=== PATIENT | female | born 2000 | race American Indian/Alaskan Native ===

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

== ENCOUNTER 2019-01-26 11:10 | Emergency (ER) | payer SELFPAY ==
[2019-01-26 11:51] VITALS: BP 122/77
--- NOTE | 2019-01-26 12:12 | Emergency Department Report ---
ED Female HPI - General Chief complaint: Abdominal Pain Stated complaint: CRAMPS Time Seen by Provider: 01/26/19 12:05 Source: patient Mode of arrival: Ambulatory Limitations: No Limitations - History of Present Illness Initial comments: 18 y/o female comes for pelvic cramping after starting her menses yesterday. Patient has taking nothing for her pain. She denies any vaginal discharge no menses. No N/V/D. No urinary frequency or dysuria. Complaint: pelvic pain Onset/Timin -: This morning Location: suprapubic Radiation: non-radiating Severity: moderate Severity scale (0 -10): 3 Quality: cramping Consistency: intermittent Improves with: none Worsens with: none Are you Now?: No Last Menstrual Period: 01/25/19 EDC: 11/01/19 Associated Symptoms: vaginal bleeding - Related Data Sexually active: Yes Previous Rx's Medication Instructions Recorded Last Taken Type Jossy Root [Jossy] 250 mg PO QID #20 capsule 10/12/18 Unknown Rx Nitrofurantoin [place]/M-Cryst 100 mg PO Q12HR #20 capsule 10/12/18 Unknown Rx [Macrobid CAP] Vit-Fe Fumar-FA [ 1 tab PO QDAY #90 tablet 10/12/18 Unknown Rx Vitamin] Pyridoxine [Vitamin B-6 50MG TAB] 50 mg PO DAILY #14 tab 10/12/18 Unknown Rx Promethazine [Phenergan TAB] 25 mg PO Q6HR PRN #20 tab 10/17/18 Unknown Rx Acetaminophen/Pamabrom [Midol 1 each PO Q6H PRN #30 tablet 01/26/19 Unknown Rx Caplet] Allergies Allergy/AdvReac Type Severity Reaction Status Date / Time Penicillins Allergy Angioedema Verified 01/26/19 11:14 ED Review of Systems ROS: Stated complaint: CRAMPS Other details as noted in HPI Comment: All other systems reviewed and negative ED Past Medical Hx - Past Medical History Previous Medical History?: No - Surgical History Past Surgical History?: Yes Additional Surgical History: /EYE SURGERY - Social History Smoking Status: Never Smoker Substance Use Type: None - Medications Home Medications: Home Medications Medication Instructions Recorded Confirmed Last Taken Type Jossy Root [Jossy] 250 mg PO QID #20 capsule 10/12/18 Unknown Rx Nitrofurantoin [place]/M-Cryst 100 mg PO Q12HR #20 capsule 10/12/18 Unknown Rx [Macrobid CAP] Vit-Fe Fumar-FA [ 1 tab PO QDAY #90 tablet 10/12/18 Unknown Rx Vitamin] Pyridoxine [Vitamin B-6 50MG TAB] 50 mg PO DAILY #14 tab 10/12/18 Unknown Rx Promethazine [Phenergan TAB] 25 mg PO Q6HR PRN #20 tab 10/17/18 Unknown Rx Acetaminophen/Pamabrom [Midol 1 each PO Q6H PRN #30 tablet 01/26/19 Unknown Rx Caplet] ED Physical Exam - General Limitations: No Limitations General appearance: alert, in no apparent distress - Head Head exam: Present: atraumatic, normocephalic - Eye Eye exam: Present: normal appearance - ENT ENT exam: Present: mucous membranes moist - Neck Neck exam: Present: normal inspection, full ROM - GI/Abdominal GI/Abdominal exam: Present: soft, normal bowel sounds. Absent: distended, tenderness, guarding, rebound, rigid - Back Exam Back exam: Present: normal inspection - Neurological Exam Neurological exam: Present: alert, oriented X3, normal gait - Psychiatric Psychiatric exam: Present: normal affect, normal mood - Skin Skin exam: Present: warm, dry, intact, normal color. Absent: rash ED Course Vital Signs 01/26/19 11:48 Temperature 97.9 F Pulse Rate 77 Respiratory 18 Rate Blood Pressure 122/77 [Right] O2 Sat by Pulse 100 Oximetry ED Medical Decision Making - Medical Decision Making 18 y/o female comes for pelvic cramping after starting her menses yesterday. Patient has taking nothing for her pain. She denies any vaginal discharge no menses. No N/V/D. No urinary frequency or dysuria. Recommend Midol or Pamperin. Critical care attestation.: If time is entered above; I have spent that time in minutes in the direct care of this critically ill patient, excluding procedure time. ED Disposition Clinical Impression: Moderate cramps with menses Disposition: - TO HOME OR SELFCARE Is pt being admited?: No Does the pt Need Aspirin: No Condition: Stable Instructions: Abdominal Pain (ED) Additional Instructions: Take medication as prescribed. Follow up with you Primary care provider. Prescriptions: Acetaminophen/Pamabrom [Midol Caplet] 1 each PO Q6H PRN #30 tablet PRN Reason: Pain , Severe (7-10) Referrals: JIL CASTANON MD [Primary Care Provider] - 3-5 Days Forms: Work/School Release Form(ED)
== END 2019-01-26 12:28 | disposition home or self-care (01) ==
LOC: ED 11:10
DX: N94.89 Other specified conditions associated with female genital organs and menstrual cycle (principal); Z88.0 Allergy status to penicillin; Z79.899 Other long term (current) drug therapy
CPT/HCPCS: 99282

== ENCOUNTER 2019-03-01 05:12 | Emergency (ER) | payer SELFPAY ==
[2019-03-01 05:53] LABS: Basophils % (Auto) 0.4 % (0.0-1.8); Eosinophils # (Auto) 0.1 K/mm3 (0.0-0.4); Eosinophils % (Auto) 1.1 % (0.0-4.3); Hematocrit 37.1 % (30.3-42.9); Hemoglobin 12.8 gm/dl (10.1-14.3); Lymphocytes # (Auto) 1.6 K/mm3 (1.2-5.4); Lymphocytes % (Auto) 19.9 % (13.4-35.0); Mean Corpuscular HGB Conc 35 % (30-34); Mean Corpuscular Volume 90 fl (79-97); Monocytes # (Auto) 0.7 K/mm3 (0.0-0.8); Monocytes % (Auto) 9.1 % (0.0-7.3); Platelet Count 231 K/mm3 (140-440); Red Blood Count 4.14 M/mm3 (3.65-5.03); Red Cell Distribution Width 13.5 % (13.2-15.2)
[2019-03-01 06:10] LABS: Alanine Aminotransferase 6 units/L (7-56); Albumin 4.3 g/dL (3.9-5); BUN/Creatinine Ratio 14; Blood Urea Nitrogen 10 mg/dL (7-17); Calcium 9.1 mg/dL (8.4-10.2); Hemolysis Index 0
--- NOTE | 2019-03-01 07:13 | Emergency Department Report ---
ED Female HPI - General Chief complaint: Abdominal Pain Stated complaint: ABDOMINAL CRAMPS Time Seen by Provider: 03/01/19 07:06 Source: patient Mode of arrival: Ambulatory Limitations: No Limitations - History of Present Illness Initial comments: Patient is a 18-year-old female who presents to emergency room with complaints of pelvic cramping for one week. Associated white vaginal discharge. Denies any nausea, vomiting, fever, chills, vaginal itching, vaginal irritation, dysuria, any other symptoms. States she is sexually active and states she uses protection. States her last menstrual cycle was last week. She denies any past medical history. She states she has an allergy to penicillin. She does not have an GLUE MOUNTER OPERATOR. - Related Data Previous Rx's Medication Instructions Recorded Last Taken Type Jossy Root [Jsosy] 250 mg PO QID #20 capsule 10/12/18 Unknown Rx Nitrofurantoin [place]/M-Cryst 100 mg PO Q12HR #20 capsule 10/12/18 Unknown Rx [Macrobid CAP] Vit-Fe Fumar-FA [ 1 tab PO QDAY #90 tablet 10/12/18 Unknown Rx Vitamin] Pyridoxine [Vitamin B-6 50MG TAB] 50 mg PO DAILY #14 tab 10/12/18 Unknown Rx Promethazine [Phenergan TAB] 25 mg PO Q6HR PRN #20 tab 10/17/18 Unknown Rx Acetaminophen/Pamabrom [Midol 1 each PO Q6H PRN #30 tablet 01/26/19 Unknown Rx Caplet] metroNIDAZOLE [Flagyl] 500 mg PO BID 7 Days #14 tab 03/01/19 Unknown Rx Allergies Allergy/AdvReac Type Severity Reaction Status Date / Time Penicillins Allergy Angioedema Verified 01/26/19 11:14 ED Review of Systems ROS: Stated complaint: ABDOMINAL CRAMPS Other details as noted in HPI Comment: All other systems reviewed and negative ED Past Medical Hx - Past Medical History Previous Medical History?: No - Surgical History Past Surgical History?: No Additional Surgical History: /EYE SURGERY - Social History Smoking Status: Never Smoker Substance Use Type: Alcohol - Medications Home Medications: Home Medications Medication Instructions Recorded Confirmed Last Taken Type Jossy Root [Jossy] 250 mg PO QID #20 capsule 10/12/18 Unknown Rx Nitrofurantoin [place]/M-Cryst 100 mg PO Q12HR #20 capsule 10/12/18 Unknown Rx [Macrobid CAP] Vit-Fe Fumar-FA [ 1 tab PO QDAY #90 tablet 10/12/18 Unknown Rx Vitamin] Pyridoxine [Vitamin B-6 50MG TAB] 50 mg PO DAILY #14 tab 10/12/18 Unknown Rx Promethazine [Phenergan TAB] 25 mg PO Q6HR PRN #20 tab 10/17/18 Unknown Rx Acetaminophen/Pamabrom [Midol 1 each PO Q6H PRN #30 tablet 01/26/19 Unknown Rx Caplet] metroNIDAZOLE [Flagyl] 500 mg PO BID 7 Days #14 tab 03/01/19 Unknown Rx ED Physical Exam - General Limitations: No Limitations General appearance: alert, in no apparent distress - Head Head exam: Present: atraumatic, normocephalic - Eye Eye exam: Present: normal appearance - ENT ENT exam: Present: mucous membranes moist - Respiratory Respiratory exam: Present: normal lung sounds bilaterally. Absent: respiratory distress, wheezes, rales, rhonchi, stridor, chest wall tenderness, accessory muscle use, decreased breath sounds, prolonged expiratory - Cardiovascular Cardiovascular Exam: Present: regular rate, normal rhythm, normal heart sounds. Absent: systolic murmur, diastolic murmur, rubs, gallop - GI/Abdominal GI/Abdominal exam: Present: soft, normal bowel sounds. Absent: distended, tenderness, guarding, rebound, rigid - External exam: Present: normal external exam. Absent: erythema, swelling, lesions, lacerations, ecchymosis, bleeding Speculum exam: Present: vaginal discharge (small amount white vaginal discharge ), other (cable inspector: BARBIE Pickard). Absent: erythema, cervical discharge, vaginal bleeding, foreign body, tissue, laceration Bi-manual exam: Present: normal bi-manual exam. Absent: cervical motion tendernes, adnexal tenderness, adnexal mass - Neurological Exam Neurological exam: Present: alert, oriented X3 - Psychiatric Psychiatric exam: Present: normal affect, normal mood - Skin Skin exam: Present: warm, dry, intact ED Course Vital Signs 03/01/19 03/01/19 05:14 08:38 Temperature 98.3 F 98.4 F Pulse Rate 104 H 86 Respiratory 18 18 Rate Blood Pressure 115/48 Blood Pressure 103/62 [Right] O2 Sat by Pulse 99 100 Oximetry ED Medical Decision Making - Lab Data Result diagrams: 03/01/19 05:34 03/01/19 05:34 Lab Results 03/01/19 03/01/19 03/01/19 Range/Units 05:34 05:34 05:34 WBC 8.0 (4.5-11.0) K/mm3 RBC 4.14 (3.65-5.03) M/mm3 Hgb 12.8 (10.1-14.3) gm/dl Hct 37.1 (30.3-42.9) % MCV 90 (79-97) fl MCH 31 (28-32) pg MCHC 35 H (30-34) % RDW 13.5 (13.2-15.2) % Plt Count 231 (140-440) K/mm3 Lymph % (Auto) 19.9 (13.4-35.0) % Crisp % (Auto) 9.1 H (0.0-7.3) % Eos % (Auto) 1.1 (0.0-4.3) % Baso % (Auto) 0.4 (0.0-1.8) % Lymph # 1.6 (1.2-5.4) K/mm3 Crisp # 0.7 (0.0-0.8) K/mm3 Eos # 0.1 (0.0-0.4) K/mm3 Baso # 0.0 (0.0-0.1) K/mm3 Seg Neutrophils % 69.5 (40.0-70.0) % Seg Neutrophils # 5.5 (1.8-7.7) K/mm3 Sodium 139 (137-145) mmol/L Potassium 3.6 (3.6-5.0) mmol/L Chloride 103.4 (98-107) mmol/L Carbon Dioxide 23 (22-30) mmol/L Anion Gap 16 mmol/L BUN 10 (7-17) mg/dL Creatinine 0.7 (0.7-1.2) mg/dL Estimated GFR > 60 ml/min BUN/Creatinine Ratio 14 % Glucose 111 H (65-100) mg/dL Calcium 9.1 (8.4-10.2) mg/dL Total Bilirubin 0.40 (0.1-1.2) mg/dL AST 12 (5-40) units/L ALT 6 L (7-56) units/L Alkaline Phosphatase 55 (35-129) units/L Total Protein 7.9 (6.3-8.2) g/dL Albumin 4.3 (3.9-5) g/dL Albumin/Globulin Ratio 1.2 % HCG, Qual Negative (Negative) Urine Color (Yellow) Urine Turbidity (Clear) Urine pH (5.0-7.0) Ur Specific Osgood (1.003-1.030) Urine Protein (Negative) mg/dL Urine Glucose (UA) (Negative) mg/dL Urine Ketones (Negative) mg/dL Urine Blood (Negative) Urine Nitrite (Negative) Urine Bilirubin (Negative) Urine Urobilinogen (<2.0) mg/dL Ur Leukocyte Esterase (Negative) Urine WBC (Auto) (0.0-6.0) /HPF Urine RBC (Auto) (0.0-6.0) /HPF U Epithel Cells (Auto) (0-13.0) /HPF Urine Mucus /HPF 03/01/19 Range/Units 07:52 WBC (4.5-11.0) K/mm3 RBC (3.65-5.03) M/mm3 Hgb (10.1-14.3) gm/dl Hct (30.3-42.9) % MCV (79-97) fl MCH (28-32) pg MCHC (30-34) % RDW (13.2-15.2) % Plt Count (140-440) K/mm3 Lymph % (Auto) (13.4-35.0) % Crisp % (Auto) (0.0-7.3) % Eos % (Auto) (0.0-4.3) % Baso % (Auto) (0.0-1.8) % Lymph # (1.2-5.4) K/mm3 Crisp # (0.0-0.8) K/mm3 Eos # (0.0-0.4) K/mm3 Baso # (0.0-0.1) K/mm3 Seg Neutrophils % (40.0-70.0) % Seg Neutrophils # (1.8-7.7) K/mm3 Sodium (137-145) mmol/L Potassium (3.6-5.0) mmol/L Chloride (98-107) mmol/L Carbon Dioxide (22-30) mmol/L Anion Gap mmol/L BUN (7-17) mg/dL Creatinine (0.7-1.2) mg/dL Estimated GFR ml/min BUN/Creatinine Ratio % Glucose (65-100) mg/dL Calcium (8.4-10.2) mg/dL Total Bilirubin (0.1-1.2) mg/dL AST (5-40) units/L ALT (7-56) units/L Alkaline Phosphatase (35-129) units/L Total Protein (6.3-8.2) g/dL Albumin (3.9-5) g/dL Albumin/Globulin Ratio % HCG, Qual (Negative) Urine Color Carlyn (Yellow) Urine Turbidity Slightly-cloudy (Clear) Urine pH 5.0 (5.0-7.0) Ur Specific Osgood 1.034 H (1.003-1.030) Urine Protein 100 mg/dl (Negative) mg/dL Urine Glucose (UA) Neg (Negative) mg/dL Urine Ketones Tr (Negative) mg/dL Urine Blood Neg (Negative) Urine Nitrite Neg (Negative) Urine Bilirubin Neg (Negative) Urine Urobilinogen 2.0 (<2.0) mg/dL Ur Leukocyte Esterase Tr (Negative) Urine WBC (Auto) 6.0 (0.0-6.0) /HPF Urine RBC (Auto) 3.0 (0.0-6.0) /HPF U Epithel Cells (Auto) 4.0 (0-13.0) /HPF Urine Mucus 3+ /HPF - Medical Decision Making Patient is a 18-year-old female who presents to emergency room with complaints of pelvic cramping for one week. Associated white vaginal discharge. Denies any nausea, vomiting, fever, chills, vaginal itching, vaginal irritation, dysuria, any other symptoms. States she is sexually active and states she uses protection. States her last menstrual cycle was last week. She denies any past medical history. She states she has an allergy to penicillin. She does not have an GLUE MOUNTER OPERATOR. VSS. no abd tenderness on exam. pelvic examination with cable inspector, small amount of white vaginal discharge, no CMT, no adnexal tenderness or masses, no clinical signs of PID. labs are normal. UA without UTI. wet prep shows bacteria vaginosis. G/C swab sent, advised pt to go to medical records in 1 week for results of her G/C swab to see if she needed further abx treatment for one of these. pt verbalized understanding. pt given prescription for flagyl for BV. advised pt to please take medication as prescribed. Do not drink alcohol while taking medication. Please go to medical records in 1 week with your drivers license to receive the results of your tests and see if you need further treatment. Please follow-up with an GLUE MOUNTER OPERATOR in the next 2-3 days. please be seen by the health department or GLUE MOUNTER OPERATOR for further STD testing. Please have your partner tested and treated as well. Abstain from sexual intercourse for 10 days. Return to the emergency room for any new or worsening symptoms. - Differential Diagnosis UTI, BV, STD, yeast, vaginitis, PID, , ovarian cyst Critical care attestation.: If time is entered above; I have spent that time in minutes in the direct care of this critically ill patient, excluding procedure time. ED Disposition Clinical Impression: Pelvic cramping, Bacterial vaginosis Disposition: TO HOME OR SELFCARE Is pt being admited?: No Does the pt Need Aspirin: No Condition: Stable Instructions: Bacterial Vaginosis (ED), Sexually Transmitted Diseases (ED), Safe Sex (ED) Additional Instructions: Please take medication as prescribed. Do not drink alcohol while taking medication. Please go to medical records in 1 week with your drivers license to receive the results of your tests and see if you need further treatment. Please follow-up with an GLUE MOUNTER OPERATOR in the next 2-3 days. please be seen by the health department or GLUE MOUNTER OPERATOR for further STD testing. Please have your partner tested and treated as well. Abstain from sexual intercourse for 10 days. Return to the emergency room for any new or worsening symptoms. Prescriptions: metroNIDAZOLE [Flagyl] 500 mg PO BID 7 Days #14 tab Referrals: [facility] [Primary Care Provider] - 2-3 Days CORNELL SYED MD [Staff Physician] - 2-3 Days Forms: STI Treatment and Prevention, Work/School Release Form Time of Disposition: 08:24 Print Language: PRYDEINIG
[2019-03-01 08:09] LABS: Bilirubin,Urine NEG (Negative); Blood,Urine NEG (Negative); Color,Urine Amber (Yellow); Mucus,Urine 3+ /HPF
[2019-03-01 08:39] VITALS: BP 103/62
== END 2019-03-01 08:40 | disposition home or self-care (01) ==
LOC: ED 05:12
DX: N76.0 Acute vaginitis (principal); Z79.899 Other long term (current) drug therapy; Z88.0 Allergy status to penicillin
CPT/HCPCS: 36415; 80053; 81001; 84703; 85025; 87210; 87591

== ENCOUNTER 2019-07-24 10:30 | Emergency (ER) | payer SELFPAY ==
[2019-07-24] MEDS ORDERED: SODIUM CHLORIDE 0.9% 1000 ML 1,000 ML IV ONE (13:30)
[2019-07-24] MEDS ORDERED: METOCLOPRAMIDE 10 MG/2 ML INJ IV ONE (13:31)
[2019-07-24] MEDS ORDERED: diphenhydrAMINE 50 MG/ML VIAL IV ONE (13:31)
[2019-07-24] MEDS ORDERED: LACTATED RINGERS 1,000 ML IV ONE (14:15)
[2019-07-24 14:27] LABS: Alanine Aminotransferase 13 units/L (7-56); Albumin 4.6 g/dL (3.9-5); BUN/Creatinine Ratio 16; Blood Urea Nitrogen 11 mg/dL (7-17); Calcium 9.8 mg/dL (8.4-10.2); Hematocrit 49.4 % (30.3-42.9); Hemoglobin 16.6 gm/dl (10.1-14.3); Hemolysis Index 15; Mean Corpuscular HGB Conc 34 % (30-34); Mean Corpuscular Volume 90 fl (79-97); Platelet Count 199 K/mm3 (140-440); Red Blood Count 5.51 M/mm3 (3.65-5.03); Red Cell Distribution Width 13.7 % (13.2-15.2)
--- NOTE | 2019-07-24 14:54 | Emergency Department Report ---
ED N/V/D HPI - General Chief complaint: Nausea/Vomiting/Diarrhea Stated complaint: VOMIT/CANT HOLD FOOD Time Seen by Provider: 07/24/19 12:54 Source: patient Mode of arrival: Ambulatory Limitations: No Limitations - History of Present Illness Initial comments: 18-year-old -[place] female without significant past medical history presents with complaints of nausea and vomiting x6 days. She denies any fever, abdominal pain, dysuria/hematuria/urinary frequency, hematemesis/coffee-ground emesis, history of GERD, diarrhea/melena/hematochezia/constipation. Patient states she vomits with and without oral intake. She states she has possibly . She also denies any vaginal bleeding, vaginal discharge, or dyspareunia. MD complaint: nausea, vomiting -: Sudden - Related Data Previous Rx's Medication Instructions Recorded Last Taken Type Jossy Root [Jossy] 250 mg PO QID #20 capsule 10/12/18 Unknown Rx Nitrofurantoin Coleman/M-Cryst 100 mg PO Q12HR #20 capsule 10/12/18 Unknown Rx [Macrobid CAP] Vit-Fe Fumar-FA [ 1 tab PO QDAY #90 tablet 10/12/18 Unknown Rx Vitamin] Pyridoxine [Vitamin B-6 50MG TAB] 50 mg PO DAILY #14 tab 10/12/18 Unknown Rx Promethazine [Phenergan TAB] 25 mg PO Q6HR PRN #20 tab 10/17/18 Unknown Rx Acetaminophen/Pamabrom [Midol 1 each PO Q6H PRN #30 tablet 01/26/19 Unknown Rx Caplet] metroNIDAZOLE [Flagyl] 500 mg PO BID 7 Days #14 tab 03/01/19 Unknown Rx Allergies Allergy/AdvReac Type Severity Reaction Status Date / Time Penicillins Allergy Angioedema Verified 01/26/19 11:14 ED Review of Systems ROS: Stated complaint: VOMIT/CANT HOLD FOOD Other details as noted in HPI Constitutional: denies: chills, fever ENT: denies: throat pain Respiratory: denies: cough, shortness of breath Cardiovascular: denies: chest pain Gastrointestinal: nausea, vomiting. denies: abdominal pain, diarrhea, constipation, hematemesis, melena, hematochezia Genitourinary: denies: urgency, dysuria, frequency, hematuria, discharge, abnormal menses, dyspareunia Skin: denies: rash, lesions, change in color Neurological: denies: headache ED Past Medical Hx - Past Medical History Previous Medical History?: No - Surgical History Past Surgical History?: Yes Additional Surgical History: /EYE SURGERY - Social History Smoking Status: Never Smoker Substance Use Type: None - Medications Home Medications: Home Medications Medication Instructions Recorded Confirmed Last Taken Type Jossy Root [Jossy] 250 mg PO QID #20 capsule 10/12/18 Unknown Rx Nitrofurantoin Coleman/M-Cryst 100 mg PO Q12HR #20 capsule 10/12/18 Unknown Rx [Macrobid CAP] Vit-Fe Fumar-FA [ 1 tab PO QDAY #90 tablet 10/12/18 Unknown Rx Vitamin] Pyridoxine [Vitamin B-6 50MG TAB] 50 mg PO DAILY #14 tab 10/12/18 Unknown Rx Promethazine [Phenergan TAB] 25 mg PO Q6HR PRN #20 tab 10/17/18 Unknown Rx Acetaminophen/Pamabrom [Midol 1 each PO Q6H PRN #30 tablet 01/26/19 Unknown Rx Caplet] metroNIDAZOLE [Flagyl] 500 mg PO BID 7 Days #14 tab 03/01/19 Unknown Rx ED Physical Exam - General Limitations: No Limitations General appearance: alert, in no apparent distress - Head Head exam: Present: atraumatic, normocephalic - Eye Eye exam: Present: normal appearance - ENT ENT exam: Present: mucous membranes moist - Neck Neck exam: Present: normal inspection - Respiratory Respiratory exam: Present: normal lung sounds bilaterally. Absent: respiratory distress - Cardiovascular Cardiovascular Exam: Present: regular rate, normal rhythm - GI/Abdominal GI/Abdominal exam: Present: soft, normal bowel sounds. Absent: distended, tenderness, guarding, rebound, rigid - Extremities Exam Extremities exam: Present: normal inspection - Back Exam Back exam: Present: normal inspection - Neurological Exam Neurological exam: Present: alert, oriented X3 - Psychiatric Psychiatric exam: Present: normal affect, normal mood - Skin Skin exam: Present: warm, dry, intact, normal color. Absent: rash, cyanosis, diaphoretic, erythema, ecchymosis ED Course Vital Signs 07/24/19 10:38 Temperature 97.7 F Pulse Rate 91 H Respiratory 20 Rate Blood Pressure 115/73 ED Medical Decision Making - Lab Data Result diagrams: 07/24/19 13:37 03/03/20 13:37 Lab Results 07/24/19 07/24/19 07/24/19 Range/Units 13:37 13:37 13:37 WBC 4.6 (4.5-11.0) K/mm3 RBC 5.51 H (3.65-5.03) M/mm3 Hgb 16.6 H (10.1-14.3) gm/dl Hct 49.4 H (30.3-42.9) % MCV 90 (79-97) fl MCH 30 (28-32) pg MCHC 34 (30-34) % RDW 13.7 (13.2-15.2) % Plt Count 199 (140-440) K/mm3 Lymph % (Auto) Welding Supervisor Coleman % (Auto) Welding Supervisor Eos % (Auto) Welding Supervisor Baso % (Auto) Welding Supervisor Lymph # Welding Supervisor Coleman # Welding Supervisor Eos # Welding Supervisor Baso # Welding Supervisor Seg Neutrophils % Welding Supervisor Seg Neutrophils # Welding Supervisor Sodium 138 (137-145) mmol/L Potassium 3.8 (3.6-5.0) mmol/L Chloride 99.5 (98-107) mmol/L Carbon Dioxide 17 L (22-30) mmol/L Anion Gap 25 mmol/L BUN 11 (7-17) mg/dL Creatinine 0.7 (0.7-1.2) mg/dL Estimated GFR > 60 ml/min BUN/Creatinine Ratio 16 % Glucose 80 (65-100) mg/dL Calcium 9.8 (8.4-10.2) mg/dL Total Bilirubin 0.70 (0.1-1.2) mg/dL AST 15 (5-40) units/L ALT 13 (7-56) units/L Alkaline Phosphatase 60 (35-129) units/L Total Protein 8.5 H (6.3-8.2) g/dL Albumin 4.6 (3.9-5) g/dL Albumin/Globulin Ratio 1.2 % HCG, Qual Positive (Negative) Urine Color (Yellow) Urine Turbidity (Clear) Urine pH (5.0-7.0) Ur Specific [place] (1.003-1.030) Urine Protein (Negative) mg/dL Urine Glucose (UA) (Negative) mg/dL Urine Ketones (Negative) mg/dL Urine Blood (Negative) Urine Nitrite (Negative) Ur Reducing Substances Urine Bilirubin (Negative) Urine Ictotest Urine Urobilinogen (<2.0) mg/dL Ur Leukocyte Esterase (Negative) Urine WBC (Auto) (0.0-6.0) /HPF Urine RBC (Auto) (0.0-6.0) /HPF U Epithel Cells (Auto) (0-13.0) /HPF Urine Bacteria (Auto) (Negative) /HPF Urine Mucus /HPF 07/24/19 Range/Units 15:41 WBC (4.5-11.0) K/mm3 RBC (3.65-5.03) M/mm3 Hgb (10.1-14.3) gm/dl Hct (30.3-42.9) % MCV (79-97) fl MCH (28-32) pg MCHC (30-34) % RDW (13.2-15.2) % Plt Count (140-440) K/mm3 Lymph % (Auto) Coleman % (Auto) Eos % (Auto) Baso % (Auto) Lymph # Coleman # Eos # Baso # Seg Neutrophils % Seg Neutrophils # Sodium (137-145) mmol/L Potassium (3.6-5.0) mmol/L Chloride (98-107) mmol/L Carbon Dioxide (22-30) mmol/L Anion Gap mmol/L BUN (7-17) mg/dL Creatinine (0.7-1.2) mg/dL Estimated GFR ml/min BUN/Creatinine Ratio % Glucose (65-100) mg/dL Calcium (8.4-10.2) mg/dL Total Bilirubin (0.1-1.2) mg/dL AST (5-40) units/L ALT (7-56) units/L Alkaline Phosphatase (35-129) units/L Total Protein (6.3-8.2) g/dL Albumin (3.9-5) g/dL Albumin/Globulin Ratio % HCG, Qual (Negative) Urine Color Carlyn (Yellow) Urine Turbidity Slightly-cloudy (Clear) Urine pH 6.0 (5.0-7.0) Ur Specific [place] 1.035 H (1.003-1.030) Urine Protein 100 mg/dl (Negative) mg/dL Urine Glucose (UA) Neg (Negative) mg/dL Urine Ketones 80 (Negative) mg/dL Urine Blood Neg (Negative) Urine Nitrite Neg (Negative) Ur Reducing Substances Not Reportable Urine Bilirubin Neg (Negative) Urine Ictotest Not Reportable Urine Urobilinogen 2.0 (<2.0) mg/dL Ur Leukocyte Esterase Neg (Negative) Urine WBC (Auto) 8.0 H (0.0-6.0) /HPF Urine RBC (Auto) 3.0 (0.0-6.0) /HPF U Epithel Cells (Auto) 5.0 (0-13.0) /HPF Urine Bacteria (Auto) 1+ (Negative) /HPF Urine Mucus 3+ /HPF - Medical Decision Making Patient presents with nausea and vomiting x6 days. No abdominal pain or acute findings noted on exam. She denies any red flag symptoms. Qualitative serum hCG is positive. CBC is normal. Anion gap = 25. UA shows 8 WBCs and 1+ bacteria with 5 epithelial cells. Urine culture sent. Patient denies any abdominal pain, dysuria, hematuria, urinary frequency, vaginal bleeding, vaginal discharge, or dyspareunia. Patient given 2 L of fluid, Benadryl, and Reglan and now tolerating food and water orally. Patient's vitals are normal. She is well-appearing and stable for discharge home. Patient instructed to follow-up with [facility] within 3 days for further management of her and a recheck of her urine. Discussed strict return precautions in great detail with patient who verbalizes understanding. Critical care attestation.: If time is entered above; I have spent that time in minutes in the direct care of this critically ill patient, excluding procedure time. ED Disposition Clinical Impression: Hyperemesis gravidarum, Early stage of , Pyuria Disposition: TO HOME OR SELFCARE Is pt being admited?: No Condition: Stable Instructions: Hyperemesis Gravidarum (ED), (ED) Additional Instructions: Pleas follow up with the provided OBGYN within 3 days for a recheck of your urine and further management of your Referrals: KIKE BHATT MD [Primary Care Provider] - 3-5 Days
[2019-07-24 15:59] LABS: Bacteria,Urine 1+ /HPF (Negative); Mucus,Urine 3+ /HPF
[2019-07-24 16:01] LABS: Bilirubin,Urine NEG (Negative); Blood,Urine NEG (Negative); Color,Urine Amber (Yellow)
[2019-07-24 17:59] VITALS: BP 114/75
== END 2019-07-24 17:58 | disposition home or self-care (01) ==
LOC: ED 10:30
DX: O21.0 Mild hyperemesis gravidarum (principal); O99.89 Other specified diseases and conditions complicating pregnancy, childbirth and the puerperium; O21.8 Other vomiting complicating pregnancy; R82.81 Pyuria; Z3A.00 Weeks of gestation of pregnancy not specified; Z98.890 Other specified postprocedural states; Z88.0 Allergy status to penicillin; Z79.899 Other long term (current) drug therapy
CPT/HCPCS: 36415; 80053; 81001; 84703; 85025; 87086; 96361; 96374; 96375; 99283; J1200; J2765; J7030; J7120